=== PATIENT | male | born 1990 | race Caucasian/White ===

== ENCOUNTER 2018-02-10 19:49 | Emergency (ER) | payer SELFPAY ==
[2018-02-10] MEDS ORDERED: Rocuronium 50 MG/5 ML Vial IV ONE (19:50)
[2018-02-10] MEDS ORDERED: Succinylcholine 200 MG/10 ML MDV IV ONE (19:50)
--- NOTE | 2018-02-10 20:05 | EDM.PDOC ---
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 Past medical history: As per history of present illness and as reviewed below otherwise noncontributory. Surgical history: As per history of present illness and as reviewed below otherwise noncontributory. Social history: No reported history of drug or alcohol abuse. Family history: As per history of present illness and as reviewed below otherwise noncontributory. Physical exam: HEENT: Atraumatic, normocephalic, pupils reactive, negative for conjunctival pallor or scleral icterus, mucous membranes moist, throat clear, neck supple, nontender, trachea midline. Lungs: Clear to auscultation, breath sounds equal bilaterally, chest nontender. Heart: S1S2, regular, negative for clicks, rubs, or JVD. Abdomen: Soft, nondistended, nontender. Negative for masses or hepatosplenomegaly. Negative for costovertebral tenderness. Pelvis: Stable nontender. Genitourinary: Deferred. Rectal: Deferred. Extremities: Atraumatic, negative for cords or calf pain. Neurovascular unremarkable. Neuro: Awake, alert, oriented. Cranial nerves II through XII unremarkable. Cerebellum unremarkable. Motor and sensory unremarkable throughout. Exam nonfocal. Diagnostics: [CBC CMP troponin CPK K CK-MB lactic acid blood cultures 2 urine and urine culture ABG drug screen TSH Chest 1 view ] Therapeutics: [Patient intubated shortly after arrival Currently on a propofol drip at 50 He did receive rocuronium, see anesthesia note for detailed information concerning intubation Patient is transferred to Dr. Yoshi Gooden ER excepting via [facility] ] Impression: [Altered mental status rigidity Fever ] Definitive disposition and diagnosis as appropriate pending reevaluation and review of above. ED ROS GENERAL - Review of Systems Review Of Systems: See Below ED EXAM, GENERAL - Physical Exam Exam: See Below Course - Orders/Labs/Meds Orders: Active Orders 24 hr Category Date Time Status Chest 1V Frontal [CR] Stat Exams 02/10/18 19:55 Ordered CBC WITH AUTO DIFF [HEME] Stat Lab 02/10/18 19:56 Ordered CKMB [CHEM] Stat Lab 02/10/18 19:56 Ordered COMPREHENSIVE METABOLIC PN,CMP [CHEM] Stat Lab 02/10/18 19:56 Ordered CREATINE KINASE,CK [CHEM] Stat Lab 02/10/18 19:56 Ordered CULTURE BLOOD [BC] Stat Lab 02/10/18 19:57 Ordered CULTURE BLOOD [BC] Stat Lab 02/10/18 19:57 Ordered CULTURE URINE [RM] Stat Lab 02/10/18 19:57 Ordered DRUG SCREEN, URINE [URCHEM] Stat Lab 02/10/18 19:56 Ordered ETOH [ETHANOL BLOOD MEDICAL] [CHEM] Stat Lab 02/10/18 19:56 Ordered INR,PT,PROTHROMBIN TIME [COAG] Stat Lab 02/10/18 19:56 Ordered LACTIC ACID,WHOLE BLOOD [BG] Stat Lab 02/10/18 19:56 Ordered TROPONIN I [CHEM] Stat Lab 02/10/18 19:56 Ordered TSH [CHEM] Stat Lab 02/10/18 19:56 Ordered Blood Culture x2 Reflex Set [OM.PC] Stat Oth 02/10/18 19:57 Ordered Departure - Departure Time of Disposition: 20:04 Disposition: DC/Tfer to Acute Hospital 02 Condition: Poor Clinical Impression: Altered mental status - Discharge Information - My Orders Last 24 Hours: My Active Orders 02/10/18 19:55 Chest 1V Frontal [CR] Stat 02/10/18 19:56 CBC WITH AUTO DIFF [HEME] Stat CKMB [CHEM] Stat COMPREHENSIVE METABOLIC PN,CMP [CHEM] Stat CREATINE KINASE,CK [CHEM] Stat DRUG SCREEN, URINE [URCHEM] Stat ETOH [ETHANOL BLOOD MEDICAL] [CHEM] Stat INR,PT,PROTHROMBIN TIME [COAG] Stat LACTIC ACID,WHOLE BLOOD [BG] Stat TROPONIN I [CHEM] Stat TSH [CHEM] Stat 02/10/18 19:57 CULTURE BLOOD [BC] Stat CULTURE BLOOD [BC] Stat CULTURE URINE [RM] Stat Blood Culture x2 Reflex Set [OM.PC] Stat - Assessment/Plan Last 24 Hours: My Active Orders 02/10/18 19:55 Chest 1V Frontal [CR] Stat 02/10/18 19:56 CBC WITH AUTO DIFF [HEME] Stat CKMB [CHEM] Stat COMPREHENSIVE METABOLIC PN,CMP [CHEM] Stat CREATINE KINASE,CK [CHEM] Stat DRUG SCREEN, URINE [URCHEM] Stat ETOH [ETHANOL BLOOD MEDICAL] [CHEM] Stat INR,PT,PROTHROMBIN TIME [COAG] Stat LACTIC ACID,WHOLE BLOOD [BG] Stat TROPONIN I [CHEM] Stat TSH [CHEM] Stat 02/10/18 19:57 CULTURE BLOOD [BC] Stat CULTURE BLOOD [BC] Stat CULTURE URINE [RM] Stat Blood Culture x2 Reflex Set [OM.PC] Stat
[2018-02-10] MEDS ORDERED: Piperacillin/Tazobactam 3.375 GM in Sodium Chloride 0.9% 50 ML IV ONE (20:09)
--- NOTE | 2018-02-10 20:22 | PCM.SN ---
- Free Text/Narrative Note: Called to the ER by Dr Odonnell for combative patient. On exam the patient is not making any sense, in combative and very diaphoretic. IV was established by nursing and intubation and sedation were requested by Dr Odonnell. RSI propofol 200mg IV Rocuronium 10mg IVP Succinylcholine 140mg IVP DL with huff 2 yields Grade I view, 8.0 cuffed ETT was placed. +EtCO2 +BBS. CXR reviewed and ETT withdrawn 2cm. Rocuronium 40mg IV was given for continued relaxation and propofol drip was started at 50mcg/kg/min. Versed 2mg IV and Fentanyl 100mcg IV was also given for sedation. 40 minutes later the patient was starting to move around again despite the propofol infusion so Rocuronium 50mg IVP was given prior to transfer. The patient has remained tachycardic since arrival 170's-140's, and has otherwise been hemodynamically stable.
[2018-02-10 20:55] LABS: CHLORIDE,CL 103 mmol/L (98-107); SODIUM,NA 142 mmol/L (136-148)
--- NOTE | 2018-02-13 10:39 | CR ---
EXAM DATE: 02/10/18 PATIENT'S AGE: 27 Patient: SHUBHAM DICKSON Facility: [place], [place] Site . Site : 1990 Study: XRay Chest [id number]/21/2018 8:02:57 PM Ordering Physician: Doctor Gudino Final Report: INDICATION: Shortness of breath. Intubation. COMPARISON: None. FINDINGS/IMPRESSION: Portable AP chest radiograph at 7:50 p.m. 02/10/2018. Endotracheal tube with its tip in the right main bronchus approximately 1.5 centimeters below the radha. The endotracheal tube should be pulled back 2-3 centimeters. Nasogastric tube extending into the proximal stomach. Shallow inspiration. Borderline pulmonary vascular congestion. No focal lung consolidation identified. No pleural effusions. Normal heart size. No acute osseous findings. Dictated by Jairo Hemphill MD @ 02/10/2018 8:06:48 PM Dictated by: Jairo Hemphill MD @ 02/10/2018 20:07:58 (Electronic Signature) Report Signed by Proxy. [facility] FACILITYSaúl
== END 2018-02-10 20:33 ==
LOC: MW.ED 19:49
DX: R41.82 Altered mental status, unspecified (principal); R50.9 Fever, unspecified
CPT/HCPCS: 31500; 36415; 36600; 43753; 51702; 71045; 80053; 80305; 82550; 82553; 82803; 83605; 84443; 84484; 85025; 85610; 87040; 87086; 96365; 96374; 99291; G0480; J0330; J2543; J3370; J7050; 87186; 99285

== ENCOUNTER 2018-10-08 16:51 | Emergency (ER) | payer OTHER ==
[2018-10-08] MEDS ORDERED: Diphtheria,Pertussis(Acell),Tetanus Vaccine 0.5 ML Syringe IM ONE (17:39)
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
--- NOTE | 2018-10-08 18:08 | CR ---
TECHNIQUE: Two views of the left forearm. INDICATION: Fall. FINDINGS: Acute fracture of the left olecranon with 8 mm distraction of the fracture fragments. Surrounding soft tissue swelling. Wrist appears grossly intact. Dictated by Memo Roberts MD @ 10/08/2018 6:07:03 PM Dictated by: Memo Roberts MD @ 10/08/2018 18:07:15 (Electronically Signed)
--- NOTE | 2018-10-08 18:08 | CR ---
TECHNIQUE: Two views of the left humerus. INDICATION: Fall. FINDINGS: The humerus is normal. Shoulder appears intact. There is a mildly distracted fracture of the olecranon process of the ulna. Dictated by Memo Roberts MD @ Oct 08 2018 6:05PM Signed by Dr. Memo Roberts @ Oct 08 2018 6:08PM
== END 2018-10-08 18:53 | disposition home or self-care (01) ==
LOC: MW.ED 16:51
DX: S52.022A Displaced fracture of olecranon process without intraarticular extension of left ulna, initial encounter for closed fracture (principal); F17.210 Nicotine dependence, cigarettes, uncomplicated; Z23 Encounter for immunization; V29.9XXA Motorcycle rider (driver) (passenger) injured in unspecified traffic accident, initial encounter
CPT/HCPCS: 73060-26-LT; 73060-LT; 73090-26-LT; 73090-LT; 90471; 90715; 99283-25